=== PATIENT | female | born 1985 | race Caucasian/White ===

== ENCOUNTER 2017-06-12 20:51 | Emergency (ER) | payer SELFPAY ==
[~2017-06-12] VITALS: Ht 162.6 cm; Wt 97.8 kg
[2017-06-12 20:51] VITALS: BP 167/95
[~2017-06-12 20:51] MED LIST: CLIN300C8 PO; ONDA4TAB10 PO; OXYC-323 PO
[2017-06-12] MEDS ORDERED: ONDANSETRON PF 4 MG/2 ML VIAL. IV ONE (21:30)
[2017-06-12] MEDS ORDERED: KETOROLAC 60 MG/2 ML VIAL. IM ONE (21:30)
[2017-06-12 22:13] LABS: BASO % 1 % (0-3); EOS # 0.5 x10^3/uL (0.0-0.7); EOS % 6 % (0-3); HEMATOCRIT 40.3 % (36.0-47.0); HEMOGLOBIN 13.8 g/dL (12.0-15.5); LYMPH # 2.5 x10^3/uL (1.0-4.8); LYMPH % 29 % (24-48); MEAN CORPUSCULAR HEMOGLOBIN 32 pg (25-35); MEAN CORPUSCULAR HGB CONC 34 g/dL (31-37); MEAN CORPUSCULAR VOLUME 92 fL (79-100); MONO # 0.6 x10^3/uL (0.0-1.1); MONO % 6 % (0-9); NEUT # 5.1 x10^3uL (1.8-7.7); NEUT % 58 % (31-73); PLATELET COUNT 252 x10^3/uL (140-400); RED BLOOD COUNT 4.38 x10^6/uL (3.50-5.40); RED CELL DISTRIBUTION WIDTH 12.3 % (11.5-14.5); WHITE BLOOD COUNT 8.7 x10^3/uL (4.0-11.0)
[2017-06-12] MEDS ORDERED: ONDANSETRON ODT 4 MG TAB.RAPDIS PO ONE (22:15)
[2017-06-12 22:22] LABS: ALBUMIN 3.8 g/dL (3.4-5.0); ALBUMIN/GLOBULIN RATIO 0.9 (1.0-1.7); CALCIUM 9.2 mg/dL (8.5-10.1); GFR 63.9; POTASSIUM 3.9 mmol/L (3.5-5.1); TOTAL BILIRUBIN 0.4 mg/dL (0.2-1.0); TOTAL PROTEIN 7.9 g/dL (6.4-8.2)
[2017-06-12] MEDS ORDERED: fentaNYL PF 100 MCG/2 ML VIAL IV PRN (22:30)
[2017-06-12] MEDS ORDERED: IV NORMAL SALINE 1,000ML 1,000 ML IV ONE (22:30)
--- NOTE | 2017-06-12 23:38 | PHYS DOC ---
Past History Past Medical History: No Pertinent History Past Surgical History: Appendectomy, Cholecystectomy, , Hysterectomy Alcohol Use: None Drug Use: None Adult General Chief Complaint Chief Complaint: LOWER EXT PAIN HPI HPI Patient is a 31 year old female who presents with lower extremity pain. The patient states yesterday she tripped & fell against the wooden deck surrounding her hot tub. She states she sustained an abrasion to her lateral lower leg. Since the time of injury she has had excruciating pain to her calf, pain with weightbearing, numbness over the top of her foot. She denies knee or ankle pain. No fevers/chills, vomiting, but she does feel nauseated. She has tried to elevate her leg without any relief or her symptoms. Previously healthy. Review of Systems Review of Systems Constitutional: Denies fever or chills HENT: Denies nasal congestion or sore throat Respiratory: Denies cough or shortness of breath Cardiovascular: Denies chest pain or edema GI: Denies abdominal pain, nausea, vomiting Musculoskeletal: Reports lower extremity pain Integument: Reports abrasion Neurologic: Denies headache Current Medications Current Medications Current Medications Medications (Trade) Dose Ordered Sig/Ashlee Start Time Stop Time Status Last Admin Dose Admin Fentanyl Citrate (Fentanyl 2ml Vial) 50 mcg PRN Q15MIN PRN 06/12/17 22:30 06/13/17 22:29 06/12/17 22:46 50 MCG Ketorolac Tromethamine (Toradol) 60 mg 1X ONCE 06/12/17 21:30 06/12/17 21:31 DC 06/12/17 22:00 60 MG Ondansetron HCl (Zofran Odt) 4 mg 1X ONCE 06/12/17 22:15 06/12/17 22:16 DC 06/12/17 21:59 4 MG Ondansetron HCl (Zofran) 4 mg 1X ONCE 06/12/17 21:30 06/12/17 21:58 DC Sodium Chloride 1,000 ml @ 1,000 mls/hr 1X ONCE 06/12/17 22:30 06/12/17 23:29 DC 06/12/17 22:45 1,000 MLS/HR Allergies Allergies Allergies Coded Allergies Type Severity Reaction Last Updated Verified No Known Drug Allergies 03/28/16 No Physical Exam Physical Exam Constitutional: Well developed, well nourished, no acute distress, non-toxic appearance. HENT: Normocephalic, atraumatic, bilateral external ears normal, oropharynx moist, nose normal. Eyes: conjunctiva normal, no discharge. Cardiovascular: no edema. Lungs & Thorax: no respiratory distress. Abdomen: nondistended. Skin: approx 8 cm abrasion to lateral right lower leg, overlying psoriasis changes. no erythema/warmth/swelling, no purulent drainage. Extremities: right lower extremity no obvious swelling or deformity, diffuse tenderness to right calf with mild generalized swelling though no isolated compartment is definitely tense, dp/pt strong 2+, sensation diminished over the dorsum of the foot. no ankle or knee tenderness, normal ROM to ankle & knee. abrasion as above. Neurologic: Alert and oriented X 3, no focal deficits noted. Psychologic: Affect normal, judgement normal, mood normal. Current Patient Data Vital Signs Vital Signs Date Time Temp Pulse Resp B/P (MAP) Pulse Ox O2 Delivery O2 Flow Rate FiO2 06/12/17 22:46 20 100 Room Air Lab Results Laboratory Tests Test 06/12/17 21:45 06/12/17 22:06 White Blood Count 8.7 x10^3/uL (4.0-11.0) Red Blood Count 4.38 x10^6/uL (3.50-5.40) Hemoglobin 13.8 g/dL (12.0-15.5) Hematocrit 40.3 % (36.0-47.0) Mean Corpuscular Volume 92 fL (79-100) Mean Corpuscular Hemoglobin 32 pg (25-35) Mean Corpuscular Hemoglobin Concent 34 g/dL (31-37) Red Cell Distribution Width 12.3 % (11.5-14.5) Platelet Count 252 x10^3/uL (140-400) Neutrophils (%) (Auto) 58 % (31-73) Lymphocytes (%) (Auto) 29 % (24-48) Monocytes (%) (Auto) 6 % (0-9) Eosinophils (%) (Auto) 6 % (0-3) H Basophils (%) (Auto) 1 % (0-3) Neutrophils # (Auto) 5.1 x10^3uL (1.8-7.7) Lymphocytes # (Auto) 2.5 x10^3/uL (1.0-4.8) Monocytes # (Auto) 0.6 x10^3/uL (0.0-1.1) Eosinophils # (Auto) 0.5 x10^3/uL (0.0-0.7) Basophils # (Auto) 0.0 x10^3/uL (0.0-0.2) Sodium Level 140 mmol/L (136-145) Potassium Level 3.9 mmol/L (3.5-5.1) Chloride Level 105 mmol/L (98-107) Carbon Dioxide Level 25 mmol/L (21-32) Anion Gap 10 (6-14) Blood Urea Nitrogen 12 mg/dL (7-20) Creatinine 1.0 mg/dL (0.6-1.0) Estimated GFR (Cockcroft-Gault) 63.9 BUN/Creatinine Ratio 12 (6-20) Glucose Level 112 mg/dL (70-99) H Calcium Level 9.2 mg/dL (8.5-10.1) Total Bilirubin 0.4 mg/dL (0.2-1.0) Aspartate Amino Transferase (AST) 15 U/L (15-37) Alanine Aminotransferase (ALT) 25 U/L (14-59) Alkaline Phosphatase 77 U/L (46-116) Creatine Kinase 139 U/L (26-192) Total Protein 7.9 g/dL (6.4-8.2) Albumin 3.8 g/dL (3.4-5.0) Albumin/Globulin Ratio 0.9 (1.0-1.7) L POC Urine HCG, Qualitative hcg negative (Negative) EKG EKG [] Radiology/Procedures Radiology/Procedures XR R tib/fib: interpreted by me: no fracture or dislocation.[] Course & Med Decision Making Course & Med Decision Making Pertinent Labs and Imaging studies reviewed. (See chart for details) Patient presents with right lower extremity injury. Mechanism seems low risk for compartment syndrome but certainly she is exhibiting pain out of proportion to the exam. Obtained x-ray which shows no evidence of fracture or dislocation. She received pain medication in the emergency department. While overall low suspicion for compartment syndrome, with pain out of proportion to exam and sensory changes, I do believe that she warrants evaluation by an orthopedic surgeon to determine need for further diagnostic workup. I discussed with Clif DURAN with Dr. Saenz. They recommend that she should have MRI or compartment pressures checked, but that she should be transferred to a trauma center in case she requires surgery. Discussed with the patient & she would like to go to [facility]. Discussed with Dr. Austin, Emergency Physician, who agreed to accept for transfer. Discussed with Toni DURAN with Dr. Alarcon of orthopedic surgery who will consult when the patient arrives. The patient requests transfer by private vehicle rather than EMS. She is hemodynamically stable, encouraged to go directly to [facility] ED, stay NPO. She is in stable condition at time of transfer. Dragon Disclaimer Dragon Disclaimer This chart was dictated in whole or in part using Voice Recognition software in a busy, high-work load, and often noisy Emergency Department environment. It may contain unintended and wholly unrecognized errors or omissions. Departure Departure: Impression: Primary Impression: Lower extremity pain Disposition: 05 XFER OTHER Condition: STABLE Referrals: PCP,NO (PCP) Patient Instructions: Compartment Syndrome Additional Instructions: You were seen in the emergency department today for leg injury. You do not have a fracture. You are being transferred to [facility] to be evaluated by orthopedic surgery for possible compartment syndrome. Do not stop to eat anything. Go directly to the hospital. He will be evaluated in the emergency department. ANTONIO PERAZA MD Jun 12, 2017 23:38
--- NOTE | 2017-06-13 08:54 | RAD ---
Right tibia and fibula, 2 views, 06/12/2017: History: Calf pain and swelling No fracture or dislocation is identified. There is moderate subcutaneous edema along the lateral aspect of the lower leg inferiorly. No underlying radiopaque foreign body is evident. IMPRESSION: No acute bony abnormality is detected.
== END 2017-06-12 23:55 | disposition short-term general hospital (02) ==
LOC: ER 20:51
DX: M79.661 Pain in right lower leg (principal); S80.811A Abrasion, right lower leg, initial encounter; W01.198A Fall on same level from slipping, tripping and stumbling with subsequent striking against other object, initial encounter; Y93.89 Activity, other specified; Y99.8 Other external cause status; Y92.89 Other specified places as the place of occurrence of the external cause
CPT/HCPCS: 36415; 73590; 80053; 81025; 82550; 85025; 96361; 96372; 96374; 99285; J1885; J3010; Q0162; J7030

== ENCOUNTER 2018-01-02 15:52 | Emergency (ER) | payer SELFPAY ==
[2018-01-02] MEDS ORDERED: HYDROcodone/APAP 10/325 1 TAB TABLET PO ONE (17:00)
--- NOTE | 2018-01-02 17:49 | RAD ---
Right lower extremity venous doppler ultrasound History: Right leg swelling Comparison: None Findings: Multiple grayscale, color, and duplex spectral analysis sonographic images were acquired of the right lower extremity veins to evaluate for the presence of DVT. There is normal phasicity. Normal compression, color-flow, and augmentation is demonstrated from the right common femoral to the popliteal veins. There is normal color flow of the proximal greater saphenous and profunda femoris veins. There is normal color flow of segments of the calf veins. Impression: 1. There is no evidence of deep venous thrombosis from the right common femoral to popliteal veins. Electronically signed by: Albert Calle MD (01/02/2018 5:46 PM) [id number]
[2018-01-02 18:00] VITALS: BP 150/96
[2018-01-02] MEDS ORDERED: CYCL-331 PO (18:00)
--- NOTE | 2018-01-02 18:05 | PHYS DOC ---
Past History Past Medical History: Other Past Surgical History: Appendectomy, Cholecystectomy, , Hysterectomy Alcohol Use: None Drug Use: None Adult General Chief Complaint Chief Complaint: LOWER EXT PAIN HPI HPI Patient is a 32 year old F who presents with leg pain. Lena has had an ongoing infection on the anterior right lower leg over the past 8 months. Several days ago she developed pain in the posterior calf on the same leg. She feels that this pain is intermittent dull and severe when it is most intense. She has no other associated symptoms. Her pain is worse with standing. She has no other exacerbating or relieving factors. Review of Systems Review of Systems Constitutional: Denies fever or chills [] Eyes: Denies change in visual acuity, redness, or eye pain [] HENT: Denies nasal congestion or sore throat [] Respiratory: Denies cough or shortness of breath [] Cardiovascular: No additional information not addressed in HPI [] GI: Denies abdominal pain, nausea, vomiting, bloody stools or diarrhea [] : Denies dysuria or hematuria [] Musculoskeletal: Denies back pain or joint pain [] Integument: Negative except history of present illness Neurologic: Denies headache, focal weakness or sensory changes [] Endocrine: Denies polyuria or polydipsia [] All other systems were reviewed and found to be within normal limits, except as documented in this note. Family History Family History No pertinent family medical history was reported Current Medications Current Medications Current medications reviewed Current Medications Medications (Trade) Dose Ordered Sig/Ashlee Start Time Stop Time Status Last Admin Dose Admin Acetaminophen/ Hydrocodone Bitart (Lortab 10/325) 1 tab 1X ONCE 01/02/18 17:00 01/02/18 17:00 DC Fentanyl Citrate (Fentanyl 2ml Vial) 100 mcg 1X ONCE 01/02/18 17:10 01/02/18 17:11 DC 01/02/18 16:58 100 MCG Allergies Allergies Allergies Coded Allergies Type Severity Reaction Last Updated Verified No Known Drug Allergies 03/28/16 No Physical Exam Physical Exam Constitutional: Well developed, well nourished, no acute distress, non-toxic appearance. [] HENT: Normocephalic, atraumatic, Eyes: EOMI, conjunctiva normal, no discharge. [] Neck: Normal range of motion, no tenderness, supple, no stridor. [] Cardiovascular:Heart rate regular rhythm, Lungs & Thorax: Bilateral breath sounds clear to auscultation [] Abdomen: Bowel sounds normal, soft, no tenderness, no masses, no pulsatile masses. [] Skin: Extensive wound on the anterior right leg that is chronic Back: No tenderness, no CVA tenderness. [] Extremities: no cyanosis, no clubbing, ROM intact, no edema. [] Tenderness in the posterior right calf Neurologic: Alert and oriented X 3, normal motor function, normal sensory function, no focal deficits noted. [] Psychologic: Affect normal, judgement normal, mood normal. [] Current Patient Data Vital Signs Vital Signs Date Time Temp Pulse Resp B/P (MAP) Pulse Ox O2 Delivery O2 Flow Rate FiO2 01/02/18 16:00 98.4 104 18 95 Room Air EKG EKG [] Radiology/Procedures Radiology/Procedures US of the right leg Impressions: No DVT noted Course & Med Decision Making Course & Med Decision Making Pertinent Labs and Imaging studies reviewed. (See chart for details) [] Dragon Disclaimer Dragon Disclaimer This electronic medical record was generated, in whole or in part, using a voice recognition dictation system. Departure Departure: Impression: Primary Impression: Leg pain, right Disposition: HOME, SELF-CARE Condition: STABLE Referrals: MEGAN LEMUS (PCP) Patient Instructions: Muscle Cramps Additional Instructions: Lena was seen in the emergency department for leg pain. No emergency medical condition was found on history or physical exam. She does have an ultrasound that ruled out a clot in her leg. Her symptoms are most consistent with muscle spasm. She was given a prescription for muscle relaxer. She is encouraged to return to the emergency room if she develops new or worsening symptoms. She was also advised follow-up with her primary care doctor as needed for further management. Scripts Cyclobenzaprine Hcl (CYCLOBENZAPRINE HCL) 10 Mg Tablet 1 TAB PO TID Y for PAIN for 3 Days, #9 TAB Prov: DELORIS MEDEIROS MD 01/02/18 DELORIS MEDEIROS MD Jan 02, 2018 18:05
== END 2018-01-02 18:20 | disposition home or self-care (01) ==
LOC: ER 15:52
DX: M79.661 Pain in right lower leg (principal)
CPT/HCPCS: 93971; 96372; 99284; J3010